=== PATIENT | male | born 1985 | race Caucasian/White ===

== ENCOUNTER 2016-12-07 07:10 | Inpatient (IN) | payer SELFPAY ==
[2016-12-07] MEDS ORDERED: OLANZapine DISINTEGR 10 MG TAB ONE (07:18)
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
[2016-12-07] MEDS ORDERED: OLANZapine DISINTEGR 10 MG TAB PO ONE (07:23)
[2016-12-07 07:52] LABS: % IMMATURE GRANULYOCYTES 0.3 % (0.0-1.1); ABSOLUTE IMMATURE GRANULOCYTES 0.02 10^3/uL (0.00-0.10); ADD DIFF? NO; ADD MORPH? NO; ADD SCAN? NO; ATYPICAL LYMPHOCYTE FLAG 10 (0-99); FRAGMENT RBC FLAG 0 (0-99); HEMATOCRIT 41.4 % (40.0-51.0); HEMOGLOBIN 14.7 g/dL (13.7-17.5); LEFT SHIFT FLG 0 (0-99); LIPEMIA HEMOLYSIS FLAG 90 (0-99); MEAN CELL HEMOGLOBIN 31.4 pg (27.9-34.1); MEAN CELL HEMOGLOBIN CONCENTR. 35.5 g/dL (32.4-36.7); MEAN CELL VOLUME 88.5 fL (81.5-99.8); MEAN PLATELET VOLUME 9.7 fL (8.7-11.7); PLATELET CLUMPS FLAG 0 (0-99); PLATELET COUNT 253 10^3/uL (150-400); RED BLOOD CELL COUNT 4.68 10^6/uL (4.40-6.38); RED CELL DISTRIBUTION WIDTH 13.3 % (11.5-15.2)
[2016-12-07 08:13] LABS: ANION GAP 12 mEq/L (8-16); CALCIUM 9.5 mg/dL (8.5-10.4); CARBON DIOXIDE 21 mEq/l (22-31); CHLORIDE 108 mEq/L (97-110); CREATININE 0.8 mg/dL (0.7-1.3); ETHANOL SERUM < 10 mg/dL (0-10); GLOMERULAR FILTRATION RATE > 60; GLUCOSE 110 mg/dL (70-100); POTASSIUM 3.8 mEq/L (3.5-5.2); SODIUM 141 mEq/L (134-144)
[2016-12-07] MEDS ORDERED: LORazepam 1 MG TAB PO ONE (21:41)
[2016-12-08] MEDS ORDERED: LORazepam 1 MG TAB ONE (05:26)
[2016-12-08] MEDS ORDERED: LORazepam 1 MG TAB PO ONE (05:35)
[2016-12-08] MEDS ORDERED: IBUPROFEN 600 MG TAB PO PRN (16:57)
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
[2016-12-09] MEDS: OLANZapine DISINTEGR 10 MG TAB PO PRN ×3 (02:09→17:41)
[2016-12-09] MEDS: LORazepam 1 MG TAB PO PRN ×2 (02:09→09:37)
[2016-12-09] MEDS ORDERED: LORazepam 1 MG TAB PO PRN (21:55)
[2016-12-09] MEDS ORDERED: OLANZapine DISINTEGR 10 MG TAB PO PRN (21:59)
[2016-12-09] MEDS ORDERED: OLANZapine DISINTEGR 5 MG TAB PO SCH (22:00)
--- NOTE | 2016-12-09 23:51 | SOAPPROG ---
SOAP Progress Note Assessment/Plan: Assessment: 30yo cm , presented to ED by EMS from [facility] noted with disorganized behavior and psychotic. 1st psych admission. Hx of depression, has been manic and more recently psychotic. Does use THC regularly, recent EtOH binging, recent use of herbal medications to deal with increased stress. Reports new job with high demands, and recently learned is . Early this AM required locked seclusion and almost started on Emeds after destroyed room 2/2 psychotic thoughts/paranoia. Made homicidal threats as well. Utox +THC. More calm on interview this AM but no insight into need for meds, although agreed to take. Concerns for safety due to erratic unpredictable psychotic behavior a few hours after seeming calm and stable on admission from ED, although required Zyprexa in ED for psychosis. Per collateral, seems has been manic over past 3 weeks, also pt reports hx of depr episode DX: Unspecified psychotic disorder, acute r/o BMD I, manic with psychotic f r/o Substance induced psychosis Plan: -schedule Zyprexa 20mg/d (12/25) + 10mg prn -prn Ativan -low threshold for Emeds -ST today -place on Line of Sight, sleep in dayroom -restriction of visitors and outside food pending further evaluation and consistent safe behaviors -Admission Dictation to follow Objective: Vital Signs Temp Pulse Resp BP Pulse Ox 36.7 C 82 14 144/93 H 94 12/09/16 03:55 12/09/16 03:55 12/09/16 03:55 12/09/16 03:55 12/09/16 03:55 - Time Spent With Patient Time Spent With Patient: 60min - Pending Discharge Pending Discharge Within 24 Hours: No Pending Discharge Within 48 Hours: No ICD10 Worksheet Patient Problems: Problems Problem Status Onset Acute psychosis Acute Closed hamate fracture Acute Fracture of fifth metacarpal bone of right hand Acute Fracture of fourth metacarpal bone Acute
[2016-12-10 04:39] VITALS: RESP 16
[2016-12-10] MEDS ORDERED: OLANZapine DISINTEGR 5 MG TAB PO SCH (09:00)
--- NOTE | 2016-12-10 12:26 | SOAPPROG ---
SOAP Progress Note Assessment/Plan: Assessment: 30yo cm , presented to ED by EMS from [facility] noted with disorganized behavior and psychotic. 1st psych admission. Hx of depression, has been manic and more recently psychotic. Does use THC regularly, recent EtOH binging, recent use of herbal medications to deal with increased stress. Reports new job with high demands, and recently learned is . DX: Unspecified psychotic disorder, acute r/o BMD I, manic with psychotic f r/o Substance induced psychosis 12/09/2016 14:00 Early this AM around 2am required locked seclusion and almost started on Emeds after destroyed room 2/2 psychotic thoughts/paranoia. Eventually took po meds. While psychotic, made nonspecific homicidal threats and seemed to target psychiatrist whom he never met but was listed as admitting MD, having drawn (on his wall with marker) stick figure with noose around neck and figure on upside down cross, with arrows and "Dr. Peña". Slept 3hr last night. More calm on interview this AM but no insight into need for meds, although agreed to take. Denied HI, instead talked of need to "kill the evil" present inside of all humans to make world better. Talked of his thoughts/fear (upon seeing wires under his bed) that he was going to get electrocuted and wondered about how many people in the bed in his room and, per staff, apparently another pt had talked of Dr. Chavira doing ECT. Concerns for safety due to erratic unpredictable psychotic behavior a few hours after seeming calm and stable on admission from ED, although required Zyprexa in ED for psychosis. Per collateral, seems has been manic over past 3 weeks, also pt reports hx of depr episode Utox +THC. Plan: -schedule Zyprexa 20mg/d (12/25) + 10mg prn -prn Ativan -low threshold for Emeds -STC today. discussed decision-making for being vol, getting d/cd or being certified. pt agreed to stay vol but was certified based on recent erratic, unpredictable and psychotic behavior. -place on Line of Sight, sleep in dayroom -restriction of visitors and outside food pending further evaluation and consistent safe behaviors -*Admission Dictation to follow -no acute need for any "duty to warn", but will inform Dr. Peña of weekend events upon return. 12/10/16 14:56 per staff, slept 7hr. has been cooperative and safe. questioning need for meds but compliant. On interview, pt was able to be more reflective about his recent psychotic symptoms and behaviors. He reports having some "black-outs" of not recalling details around his acute psychosis resulting in seclusion, but expressed apparent genuine surprise and remorse when discussed his drawings on the wall ( stick figure hanging from tree by noose, upside down cross, "" name with arrows). Pt asking if he can clean this up before MD sees that, "I feel really bad", "I don't remember doing that", and thinks the noose was rather representing what happened to his father (who suicided by hanging), and worries that upside down cross was satanistic while he considers himself spiritual/ baptist. Received reading material from staff about BMD, THC, [place]. Maintains what the [facility] uses is "[place]" which is different, and that he missed a service before ending up inpatient so he's not sure how this could be a problem. Denies any s/e to medications. MSE: casually dressed, more calm and cooperative, engaging. slight incr rate speech and with slight intensity of affect, seeming a bit hypomanic and overly agreeable perhaps superficially. reports mood is "good", and feels getting sleep has been helpful. Absolutely denies any thoughts of harming self or others. Denies AH/VH and thoughts seem more linear/organized/logical today. Insight/jdmgt limited. cognitively intact. Plan: -will d/c 1:1/Line of Sight -continue visitor restriction and outside food restrictions. understands this and why, -continue Zyprexa, change from 5mg/15mg to 20mg QHS, continue prn availability. Zydis form to ensure compliance. -cont prn Ativan. -educated on risks of subst use and mental illness incl with family predisposition. staff provided with reading material on risks of THC and [place]. -cont on STC -d/c suicide prec (no SI), cont safety prec, and assault prec -okay order for yumi wrap on splint/split cast RUE. will need surgery sometime soon. 12/11/16 11:17 Objective: Vital Signs Temp Pulse Resp BP Pulse Ox 36.4 C 60 16 138/87 H 100 12/10/16 04:38 12/10/16 04:38 12/10/16 04:38 12/10/16 04:38 12/10/16 04:38 - Time Spent With Patient Time Spent With Patient: 45min - Pending Discharge Pending Discharge Within 24 Hours: No Pending Discharge Within 48 Hours: No ICD10 Worksheet Patient Problems: Problems Problem Status Onset Acute psychosis Acute Closed hamate fracture Acute Fracture of fifth metacarpal bone of right hand Acute Fracture of fourth metacarpal bone Acute
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
[2016-12-10] MEDS: NICOTINE POLACRILEX 2 MG GUM B PRN (18:43)
[2016-12-10] MEDS: OLANZapine DISINTEGR 10 MG TAB PO SCH (21:24)
[2016-12-11 04:13] VITALS: O2SAT 97
[2016-12-11] MEDS: NICOTINE POLACRILEX 2 MG GUM B PRN ×2 (05:35→07:22)
[2016-12-11] MEDS: OLANZapine DISINTEGR 10 MG TAB PO SCH (21:57)
[2016-12-12 06:24] VITALS: BP 115/82; PULSE 100
[2016-12-12 06:59] VITALS: TEMP 97.5
== END 2016-12-12 14:18 | disposition home or self-care (01) | DRG 885 ==
LOC: EDBD 07:10 → BBEH 12-08 13:13
PROVIDERS: ADMIT Psychiatry & Neurology Psychiatry; ATTEND Psychiatry & Neurology Psychiatry
PROC: 2W3EX1Z Immobilization of Right Hand using Splint (ICD-10-PCS; principal; 2016-12-07)
DX: F23 Brief psychotic disorder (principal); S62.314A Displaced fracture of base of fourth metacarpal bone, right hand, initial encounter for closed fracture; S62.141A Displaced fracture of body of hamate [unciform] bone, right wrist, initial encounter for closed fracture; S62.316A Displaced fracture of base of fifth metacarpal bone, right hand, initial encounter for closed fracture; W22.09XA Striking against other stationary object, initial encounter; Z72.0 Tobacco use; Z87.820 Personal history of traumatic brain injury
CPT/HCPCS: 80305; G0480